=== PATIENT | male | born 1960 | race Caucasian/White ===

== ENCOUNTER 2016-12-01 10:02 | Day surgery (SDC) | payer SELFPAY ==
[~2016-12-01] VITALS: Ht 177.8 cm; Wt 70.6 kg
[~2016-12-01 10:02] MED LIST: ZESTRIL,PRINIVI10 MG PO
[2016-12-01 14:06] LABS: BILIRUBIN NEGATIVE; BLOOD NEGATIVE; COLOR YELLOW ((YELLOW)); GLUCOSE (STRIP) NEGATIVE; KETONES 80; LEUKOCYTES NEGATIVE; NITRITE NEGATIVE; PROTEIN (STRIP) 30; SPECIFIC GRAVITY 1.031 (1.000-1.030); UROBILINOGEN 0.2 MG/DL (0.2-1.0)
[2016-12-01 14:07] LABS: ADD MIUA? NO
[2016-12-01 18:42] LABS: EOSINOPHIL (%) 0.1 % (0-5); HEMATOCRIT 38.4 % (38.0-50.0); IMMATURE GRANULOCYTE (%) 0.5 % (0.0-0.7); IMMATURE GRANULOCYTE COUNT 0.1 K/uL; INSTRUMENT ABS NEUTROPHIL CT 7.5 K/uL; MCH 31.9 PG (29.0-34.0); MCHC 34.6 G/DL (30.0-36.0); MCV 92.1 FL (86-99); MEAN PLAT.VOLUME 9.5 uM^3 (9.0-12.4); MONOCYTE (%) 9.2 % (3-12); NEUTROPHIL (%) 71.4 % (45-76); NEUTROPHIL COUNT 7.5 K/uL (1.8-6.4); PLATELET COUNT 281 K/uL (156-360); RBC DIS.WIDTH-CV 11.6 % (11.8-14.6); RBC DIS.WIDTH-SD 39.2 % (39-53); RED BLOOD COUNT 4.17 M/uL (4.00-5.50); WHITE BLOOD COUNT 10.5 K/uL (4.1-10.2)
[2016-12-01 18:57] LABS: CHLORIDE 106 mEq/L (99-109); POTASSIUM 4.1 mEq/L (3.7-5.4); SODIUM 140 mEq/L (136-147)
[2016-12-01 18:59] LABS: GLUCOSE 88 mg/dL (70-99)
[2016-12-01 19:00] LABS: ANION GAP 10 MEQ/L (2-14)
[2016-12-01 19:02] LABS: GFR ESTIMATE (CALCULATED) > 59 mL/min/
[2016-12-01 19:03] LABS: UREA NITROGEN (BUN) 15 mg/dL (9-23)
[2016-12-02] MEDS ORDERED: NORCO 5/3251 TABLET PO (07:08)
[2016-12-02 07:55] VITALS: BP 103/63
== END 2016-12-02 10:16 | disposition home or self-care (01) ==
LOC: EME 10:02 → RME 10:02 → SDC 19:13 → 2SOUTH 21:42
PROVIDERS: Physician Assistant; Surgery
PROC: 0W9F00Z Drainage of Abdominal Wall with Drainage Device, Open Approach (ICD-10-PCS; principal; 2016-12-01)
DX: L02.211 Cutaneous abscess of abdominal wall (principal); I10 Essential (primary) hypertension
CPT/HCPCS: 74177; 80048; 80053; 81003; 85025; 85027; 87070; 87075; 87076; 87077; 87185; 87186; 87205; 88304; 99281; 99285; G0378; J0690; J1100; J1170; J1885; J2405; J3010; J3480; J7040; J7120

== ENCOUNTER 2017-05-30 06:07 | Day surgery (SDC) | payer SELFPAY ==
[~2017-05-30] VITALS: Ht 177.8 cm; Wt 72.1 kg
[~2017-05-30 06:07] MED LIST changes: +LISINOPRIL2.5 MG PO; +NORCO 5/3251 TABLET PO
[2017-05-30 07:57] VITALS: BP 110/73
[2017-05-30 08:12] LABS: PTT 28.9 SEC (25-37)
[2017-05-30] MEDS ORDERED: NORCO 5/3251 TABLET PO (12:45)
[2017-05-30 13:45] VITALS: BP 120/70
[2017-05-30 15:01] VITALS: BP 101/65
== END 2017-05-30 15:13 | disposition home or self-care (01) ==
LOC: SDC 06:07 → EDSTATUS 10:00 → OPR 10:00 → SDC 15:13
PROVIDERS: Radiology Diagnostic Radiology
PROC: 0JB80ZZ Excision of Abdomen Subcutaneous Tissue and Fascia, Open Approach (ICD-10-PCS; principal; 2017-05-30)
DX: L02.211 Cutaneous abscess of abdominal wall (principal); K63.2 Fistula of intestine; K38.1 Appendicular concretions; I10 Essential (primary) hypertension; L98.8 Other specified disorders of the skin and subcutaneous tissue
CPT/HCPCS: 77012; 85610; 85730; 87205; 88300; 88311; J0131; J0690; J1100; J2250; J2405; J2710; J3010